=== PATIENT | male | born 1945 | race Caucasian/White ===

== ENCOUNTER 2019-05-14 21:15 | Emergency (ER) | payer MEDICARE ==
[~2019-05-14] VITALS: Ht 167.6 cm; Wt 68.9 kg
--- NOTE | 2019-05-14 22:10 | NUR ---
PT TAKEN TO RADIOLOGY VIA [facility]
--- NOTE | 2019-05-14 22:26 | NUR ---
PT RETURNED FROM RADIOLOGY. PT TOLERATED WELL.
--- NOTE | 2019-05-14 23:20 | NUR ---
JACI TO [facility] ETA [id number] TRIP [id number]
[2019-05-15] MEDS ORDERED: CLONIDINE HCL 0.1 MG TABLET ONE (00:42)
[2019-05-15 00:48] VITALS: BP 175/86
[2019-05-15] MEDS ORDERED: CLONIDINE HCL 0.1 MG TABLET PO ONE (01:00)
== END 2019-05-15 01:40 | disposition home or self-care (01) ==
LOC: ER 21:20
DX: S09.8XXA Other specified injuries of head, initial encounter (principal); G30.9 Alzheimer's disease, unspecified; F02.80 Dementia in other diseases classified elsewhere, unspecified severity, without behavioral disturbance, psychotic disturbance, mood disturbance, and anxiety; G20 Parkinson's disease; I10 Essential (primary) hypertension; N17.9 Acute kidney failure, unspecified; M62.81 Muscle weakness (generalized); F29 Unspecified psychosis not due to a substance or known physiological condition; W18.39XA Other fall on same level, initial encounter; Y93.89 Activity, other specified; Y92.89 Other specified places as the place of occurrence of the external cause; Y99.8 Other external cause status
CPT/HCPCS: 70450-TC

== ENCOUNTER 2019-10-17 21:18 | Inpatient (IN) | payer MEDICARE, OTHER ==
[~2019-10-17] VITALS: Ht 182.9 cm; Wt 65.8 kg
--- NOTE | 2019-10-17 21:27 | NUR ---
PATIENT CAME TO ER BED 10 [address]IB RA [address] [facility] C/O FEVER. PER EMS REPORT, PATIENT IS MORE ALTERED THAN USUAL, UNABLE TO STATE HIS NAME. PATIENT HAS HISTORY OF DEMENTIA. AAOX0. NO SOB. BREATHING EVENLY AND UNLABORED. CONNECTED TO MONITOR.
[2019-10-17 21:53] LABS: BASOPHILS % (AUTO) 0.5 % (0.0-2.0); EOSINOPHILS % (AUTO) 0.1 % (0.0-6.0); HEMATOCRIT 40 % (39-51); HEMOGLOBIN 13.2 g/dL (13.5-17.5); LYMPHOCYTES # (AUTO) 0.1 /CMM (0.8-4.8); LYMPHOCYTES % (AUTO) 2.1 % (20.0-44.0); MEAN CORPUSCULAR HGB CONC 33 g/dl (31.0-36.0); MEAN CORPUSCULAR VOLUME 93 fL (80-96); MONOCYTES # (AUTO) 0.1 /CMM (0.1-1.30); MONOCYTES % (AUTO) 1.8 % (2.0-12.0); NEUTROPHILS # (AUTO) 5.8 /CMM (1.8-8.9); NEUTROPHILS % (AUTO) 95.5 % (43.0-81.0); PLATELET COUNT (AUTO) 73 /CMM (150-450); RED BLOOD CELL COUNT(AUTO) 4.25 MIL/uL (4.5-6.0)
[2019-10-17 22:07] LABS: ALBUMIN 3.3 g/dL (3.4-5.0); BILIRUBIN,DIRECT 0.2 mg/dL (0.0-0.2); BILIRUBIN,TOTAL 0.6 mg/dL (0.2-1.0); CALCIUM, SERUM 8.7 mg/dL (8.5-10.1); CREATININE 1.3 mg/dL (0.6-1.3); POTASSIUM 3.4 mmol/L (3.5-5.1); TOTAL PROTEIN, SERUM 6.4 g/dL (6.4-8.2)
[2019-10-17 22:26] LABS: BAND % (MANUAL) 5 % (0.0-5.0); LYMPHOCYTES % (MANUAL) 2 % (16-48); MONOCYTES % (MANUAL) 0 % (0-11.0); NEUTROPHILS % (MANUAL) 93 (42-76)
[2019-10-17] MEDS ORDERED: IV NS 0.9% 1,000 ML BAG IV ONE (22:30)
[2019-10-17] MEDS ORDERED: ACETAMINOPHEN 325 MG TABLET PO ONE (22:30)
[2019-10-17] MEDS ORDERED: ASPIRIN 325 MG TABLET PO ONE (22:30)
[2019-10-17] MEDS ORDERED: ACETAMINOPHEN ES 500 MG TABLET ONE (22:31)
[2019-10-17] MEDS ORDERED: CEFTRIAXONE 1GM BAG (ER ONLY) 50 ML IV ONE (22:52)
[2019-10-17] MEDS ORDERED: ACETAMINOPHEN 650 MG/SUPP.RECT RC ONE ×2 (22:53→23:00)
[2019-10-17] MEDS ORDERED: ASPIRIN 300 MG/SUPP.RECT RC ONE ×2 (22:53→23:00)
--- NOTE | 2019-10-17 22:56 | NUR ---
CALLED [facility], PAGED DR GOODMAN
[2019-10-17] MEDS ORDERED: QUET25TA PO (22:58)
[2019-10-17] MEDS ORDERED: CARB-93 PO (22:58)
[2019-10-17] MEDS ORDERED: ATEN25TA PO (22:58)
[2019-10-17] MEDS ORDERED: BUSP5TAB3 PO (22:58)
[2019-10-17] MEDS ORDERED: QUET100T PO (22:58)
[2019-10-17] MEDS ORDERED: AZITHROMYCIN 500 MG in IV D5W 250 ML IV ONE (23:00)
[2019-10-17] MEDS ORDERED: CEFTRIAXONE 1GM BAG (ER ONLY) 1 GM/50 ML PIGGYBACK IV ONE (23:00)
--- NOTE | 2019-10-17 23:03 | NUR ---
ER SPOKE TO DR. GOODMAN REGARDING PT ADMISSION.
--- NOTE | 2019-10-17 23:08 | NUR ---
TELE BED 324-2
[2019-10-17] MEDS ORDERED: AZITHROMYCIN 500 MG VIAL ONE (23:22)
[2019-10-17] MEDS ORDERED: LORAZEPAM INJ 2 MG/ML VIAL IV ONE (23:30)
[2019-10-18] MEDS ORDERED: IV NS 0.9% 1,000 ML BAG IV ONE
[2019-10-18] MEDS ORDERED: ALBUMIN 25% 50 ML IV ONE (00:07)
--- NOTE | 2019-10-18 00:26 | NUR ---
RAYMOND GAFFNEY SPOKE TO DR. GOODMAN REGARDING PT UPDATE. PT STILL OK TO ADMIT TO TELE.
[2019-10-18] MEDS ORDERED: ALBUMIN 25% 12.5 GM in PREMIX 1 EA IV PRN (00:30)
--- NOTE | 2019-10-18 00:57 | NUR ---
Report given Faviola DE LA ROSA for CARLOS.
[2019-10-18] MEDS ORDERED: ACETAMINOPHEN 325 MG TABLET PO PRN (01:00)
[2019-10-18] MEDS ORDERED: ONDANSETRON HCL/PF 4 MG/2 ML VIAL IVP PRN (01:00)
[2019-10-18] MEDS ORDERED: Z GUARD REMEDY 2 OZ OINT TP PRN (01:00)
[2019-10-18] MEDS ORDERED: MAGNESIUM HYDROXIDE 30 ML UDC PO PRN (01:00)
[2019-10-18] MEDS ORDERED: MAG HYDROX/AL HYDROX/SIMETH 30 ML UDC PO PRN (01:00)
[2019-10-18] MEDS ORDERED: HYDROCODONE/APAP 5/325MG 1 EACH TABLET PO PRN (01:00)
[2019-10-18] MEDS ORDERED: ZOSYN IVPB 3.375 G in IV D5W 50ml IV ONE (01:15)
[2019-10-18 01:20] VITALS: BP 91/52
--- NOTE | 2019-10-18 01:20 | NUR ---
FIRE BEHAVIOR ANALYSTHOPPER FILLER NOTE RECEIVED PATIENT VIA GURNEY FROM CABLE SWAGER AND BUILDING CONSTRUCTION PROFESSOR. TRANSFERRED PATIENT TO BED. A/OX0, PATIENT HAS INCOHERENT SPEECH, TOLERATING ROOM AIR AT THIS TIME. RESPIRATIONS ARE EVEN AND UNLABORED. NO S/S SOB NOTED. NO S/S PAIN AT THIS TIME. EXTERNAL TELE MONITOR READS SINUS RHYTHM HR 71. IN NO APPARENT DISTRESS. IV ACCESS IN LAC#20 PATENT AND SALINE LOCKED, RIGHT HAND #20 PATENT AND SALINE LOCKED. CLASS A REGIONAL TRUCK DRIVER TOOK VITAL SIGNS, COMPLETED BELONGINGS LIST. INATAL PHYSICAL ASSESSMENT COMPLETED AT THIS TIME. SKIN ASSESSMENT DONE AT THIS TIME, PICTURES TAKEN AND PLACED IN CHART. BED IS LOW AND LOCKED, HOB ELEVATED IN HIGH FOWLERS, SIDE RAILS UP X3. CALL LIGHT WITHIN REACH. WILL CONTINUE TO MONITOR.
[2019-10-18] MEDS ORDERED: VANCOMYCIN 1.5 GM in IV D5W 500ml IV ONE (01:45)
[2019-10-18] MEDS ORDERED: VANCOMYCIN 1 GM VIAL ONE ×2 (01:54→01:57)
[2019-10-18] MEDS: IV NS 0.9% 1,000 ML IV PRN ×2 (02:07→20:57)
--- NOTE | 2019-10-18 02:15 | NUR ---
UTILITY GELATIN MAKER NOTE CHARGE NURSE OVERRIDE MEDICATIONS OF ZOSYN 3.37G G D/T PHARMACY NOT AVAILABLE TO DISTRIBUTE MED. SAME FOR VANCO. FOR VANCO 2G WERE REMOVED, MIXED VIAL WITH 10ML NS AND PLACED IN 5ML (.05G) IN OTHER/SECOND 1G VANCO BAG TOTALLING TO THE ORDER FOR 1.5G VANCO TO RUN AT 250ML/HR.
[2019-10-18 04:00] VITALS: BP 104/75
--- NOTE | 2019-10-18 06:40 | NUR ---
BUSINESS REPORTER NOTE TRYING TO CALL MD FOR AN ORDER FOR RESTRAINT. PATIENT IS TRYING TO PULL OUT IV LINES, GET OUT OF BED, AND HIT STAFF. AWAITING HIS CALL. INCREASED MONITORING, TURNED ON BED ALARM AND ARM SOCK.
--- NOTE | 2019-10-18 06:43 | NUR ---
CAREER COORDINATOR CLOSING NOTE PATIENT IN BED. A/OX0, PATIENT HAS INCOHERENT SPEECH. ON OXYGEN 2L/MIN VIA NASAL CANNULA. RESPIRATIONS ARE EVEN AND UNLABORED. NO SOB NOTED. NO PAIN NOTED. EXTERNAL TELE MONITOR READS SINUS RHYTHM HR 71. NO DISTRESS NOTED. IV ACCESS IN MAINTAINED LAC#20 PATENT AND SALINE LOCKED, RIGHT HAND #20 RUNNING NS@75ML/HR. . BED IS LOW AND LOCKED, HOB ELEVATED IN HIGH FOWLERS, SIDE RAILS UP X3. CALL LIGHT WITHIN REACH. WILL ENDORSE TO NEXT SHIFT.
--- NOTE | 2019-10-18 07:30 | NUR ---
RN NOTE RECEIVED PATIENT IN BED RESTING COMFORTABLY IN MODERATE HIGH BACK REST. A/OX0, CONFUSED, PATIENT HAS INCOHERENT SPEECH. ON OXYGEN 2L/MIN VIA NASAL CANNULA. PATIENT ON B/L SOFT WRIST RESTRAINT. NO SIGNS OF DISTRESS NOTED AT THIS TIME. ON TELE MONITOR READS SINUS RHYTHM HR 70'S. IV ACCESS MAINTAINED LAC#20 PATENT AND SALINE LOCKED, RIGHT HAND #20 RUNNING NS@75ML/HR. SAFETY MEASURES IN PLACE, BED IS LOW AND LOCKED, SIDE RAILS UP X3. CALL LIGHT WITHIN REACH. WILL CONTINUE TO MONITOR.
[2019-10-18] MEDS ORDERED: BISA10SU11 RC (07:32)
[2019-10-18] MEDS ORDERED: ACET-868 PO (07:32)
[2019-10-18] MEDS ORDERED: MAGN400O6 PO (07:32)
[2019-10-18] MEDS ORDERED: NA P133E RC (07:32)
[2019-10-18] MEDS ORDERED: FEE PK DOSING 1 MIN EA MC ONE (07:49)
--- NOTE | 2019-10-18 07:51 | NUR ---
MS RN NOTE EPIC CALLED BACK TO ASK IF DR. GOODMAN RETURNED CALLED, ANSWERED NO. INFORMED ME TO CALL BACK WITH THE ATTENDING FOR TODAY. WILL INFORM AM SHIFT.
[2019-10-18 07:53] VITALS: BP 104/59
[2019-10-18] MEDS: ASPIRIN 81 MG TAB.CHEW PO SCH (08:23)
[2019-10-18] MEDS: ENOXAPARIN SODIUM 40 MG/0.4 ML DISP.SYRIN SQ SCH (08:27)
[2019-10-18 08:43] LABS: BASOPHILS % (AUTO) 0.1 % (0.0-2.0); HEMATOCRIT 36 % (39-51); HEMOGLOBIN 12.4 g/dL (13.5-17.5); LYMPHOCYTES # (AUTO) 0.2 /CMM (0.8-4.8); LYMPHOCYTES % (AUTO) 3.2 % (20.0-44.0); MEAN CORPUSCULAR HGB CONC 34 g/dl (31.0-36.0); MEAN CORPUSCULAR VOLUME 93 fL (80-96); MONOCYTES # (AUTO) 0.1 /CMM (0.1-1.30); MONOCYTES % (AUTO) 1.2 % (2.0-12.0); NEUTROPHILS # (AUTO) 4.8 /CMM (1.8-8.9); NEUTROPHILS % (AUTO) 95.5 % (43.0-81.0); PLATELET COUNT (AUTO) 51 /CMM (150-450); RED BLOOD CELL COUNT(AUTO) 3.92 MIL/uL (4.5-6.0); WHITE BLOOD COUNT (AUTO) 5.1 K/uL (4.3-11.0)
[2019-10-18 08:50] LABS: ALBUMIN 2.8 g/dL (3.4-5.0); CREATININE 1.2 mg/dL (0.6-1.3); MAGNESIUM 1.5 mg/dL (1.8-2.4); PHOSPHORUS 1.2 mg/dL (2.5-4.9); POTASSIUM 3.3 mmol/L (3.5-5.1); TOTAL PROTEIN, SERUM 5.6 g/dL (6.4-8.2)
[2019-10-18] MEDS ORDERED: POTASSIUM CHLORIDE 20 MEQ TAB.PRT.SR PO SCH (09:30)
[2019-10-18 09:38] LABS: BAND % (MANUAL) 14 % (0.0-5.0); LYMPHOCYTES % (MANUAL) 5 % (16-48); MONOCYTES % (MANUAL) 1 % (0-11.0); NEUTROPHILS % (MANUAL) 80 (42-76)
[2019-10-18] MEDS ORDERED: K PHOS NEUTRAL 250 MG TABLET PO ONE (10:00)
[2019-10-18] MEDS: Magnesium 1GM/D5W 100ML PREMIX 100 ML IV SCH ×2 (10:20→11:52)
[2019-10-18] MEDS ORDERED: ZOSYN IVPB 3.375 G in IV D5W 50ml IV SCH (12:00)
[2019-10-18] MEDS ORDERED: VANCOMYCIN 0.75 GM in IV D5W 250 ML IV SCH (14:00)
[2019-10-18] MEDS: AZITHROMYCIN 500 MG in IV D5W 250 ML IV SCH (14:40)
[2019-10-18 16:00] VITALS: BP 117/89
--- NOTE | 2019-10-18 16:00 | NUR ---
RN NOTES TROPONIN RESULTS OF 1.001, TABBY GOLD MADE AWARE WITH NO NEW ORDERS AT THIS TIME. WILL CONTINUE TO MONITOR.
[2019-10-18] MEDS: CEFTRIAXONE 1 G in IV D5W 50 ML IV SCH (18:20)
--- NOTE | 2019-10-18 18:36 | NUR ---
Patient has hx of dementia, resides at [facility] [phone]. She requires assistance with adl's. Current dc plan is to return to SNF with 7days bedhold. Addendum: 10/18/19 at 1836 by LAQUITA EASTON RN Amended: Links added.
--- NOTE | 2019-10-18 18:41 | NUR ---
RN CLOSING NOTES PATIENT IN BED. A/OX0. ON OXYGEN 2L/MIN VIA NASAL CANNULA. NO SIGNS OF DISTRESS NOTED THROUGHOUT THE SHIFT. IV ACCESS IN MAINTAINED LAC#20 PATENT AND SALINE LOCKED, RIGHT HAND #20 RUNNING NS@75ML/HR. B/L SOFT WRIST RESTRAINT MAINTAINED, SAFETY MEASURES IN PLACE, BED IS LOW AND LOCKED, HOB ELEVATED IN HIGH FOWLERS, SIDE RAILS UP X3. CALL LIGHT WITHIN REACH. WILL ENDORSE TO NEXT SHIFT.
--- NOTE | 2019-10-18 20:17 | NUR ---
MS/RN AT INITIAL ROUNDING AT 1930, PATIENT WAS ON BED AWAKE, CONFUSED, UNABLE TO ANSWER TO QUESTIONS, NO S/S OF PAIN, NO SIGNS OF DISTRESS NOTED, FALL PRECAUTIONS, WILL MONITOR FOR SAFETY.
[2019-10-18 20:27] VITALS: BP 103/65
--- NOTE | 2019-10-19 06:09 | NUR ---
MS/RN PATIENT IS AWAKE, NO DISTRESS NOTED, ON AND OFF THE WHOLE SHIFT, ALL NEEDS ATTENDED AT THIS TIME, WILL CONTINUE TO MONITOR.
[2019-10-19 06:55] LABS: BASOPHILS % (AUTO) 0.2 % (0.0-2.0); EOSINOPHILS % (AUTO) 0.1 % (0.0-6.0); HEMATOCRIT 38 % (39-51); HEMOGLOBIN 12.5 g/dL (13.5-17.5); LYMPHOCYTES # (AUTO) 0.8 /CMM (0.8-4.8); LYMPHOCYTES % (AUTO) 6.6 % (20.0-44.0); MEAN CORPUSCULAR HGB CONC 33 g/dl (31.0-36.0); MEAN CORPUSCULAR VOLUME 92 fL (80-96); MONOCYTES # (AUTO) 0.5 /CMM (0.1-1.30); MONOCYTES % (AUTO) 4.6 % (2.0-12.0); NEUTROPHILS # (AUTO) 10.6 /CMM (1.8-8.9); NEUTROPHILS % (AUTO) 88.5 % (43.0-81.0); PLATELET COUNT (AUTO) 68 /CMM (150-450); RED BLOOD CELL COUNT(AUTO) 4.09 MIL/uL (4.5-6.0)
[2019-10-19 06:58] LABS: CALCIUM, SERUM 8.1 mg/dL (8.5-10.1); CREATININE 0.9 mg/dL (0.6-1.3); MAGNESIUM 2.2 mg/dL (1.8-2.4); PHOSPHORUS 1.6 mg/dL (2.5-4.9); POTASSIUM 3.4 mmol/L (3.5-5.1)
--- NOTE | 2019-10-19 07:15 | NUR ---
MS RN OPENING NOTES RECEIVED PT IN BED, AWAKE, A/ X1, CONFUSED. PT TOLERATING 2L SUPPLEMENTARY OXYGEN VIA NC, WITH NO ACUTE RESPIRATORY DISTRESS NOTED. BOTH SOFT WRIST RESTRAINTS NOTED. PT DENIES ANY PAIN OR DISCOMFORT AT THIS TIME. ALSO DENIES CONCERNS OR QUESTIONS. IVF NS AT 75ML/HR TO R HAND G20, INTACT AND FLUID INFUSING WELL. PIV TO LAC, FLUSHED WITH NS, INTACT AND OPERATIONAL. PT KEPT COMFORTABLE IN BED, HOB ELEVATED. PED IN LOWEST, LOCKED POSITION WITH SRX3. WILL CONTINUE PLAN OF CARE.
--- NOTE | 2019-10-19 07:51 | NUR ---
MS RN NOTES SEEN AND EVALUATED BY WASHING MACHINE ASSEMBLER/DT, NO ORDERS NOTED AT THIS TIME. RN REMINDED WASHING MACHINE ASSEMBLER/DT ABOUT RENEWALS OF RESTRAINTS. WILL CONTINUE TO MONITOR PT.
[2019-10-19 08:00] VITALS: BP 122/68
[2019-10-19] MEDS: ASPIRIN 81 MG TAB.CHEW PO SCH (08:09)
[2019-10-19] MEDS: POTASSIUM CHLORIDE 20 MEQ TAB.PRT.SR PO SCH ×2 (08:09→08:53)
[2019-10-19] MEDS: ENOXAPARIN SODIUM 40 MG/0.4 ML DISP.SYRIN SQ SCH (08:10)
[2019-10-19] MEDS: METOPROLOL TARTRATE 50 MG TABLET PO SCH ×2 (08:54→21:08)
[2019-10-19] MEDS ORDERED: METOPROLOL TARTRATE 50 MG TABLET PO SCH (09:00)
[2019-10-19] MEDS ORDERED: METOPROLOL TARTRATE 25 MG TABLET PO SCH (09:00)
[2019-10-19] MEDS ORDERED: K PHOS NEUTRAL 250 MG TABLET PO ONE (09:00)
[2019-10-19 09:32] LABS: BAND % (MANUAL) 6 % (0.0-5.0); LYMPHOCYTES % (MANUAL) 6 % (16-48); MONOCYTES % (MANUAL) 6 % (0-11.0); NEUTROPHILS % (MANUAL) 82 (42-76)
[2019-10-19] MEDS: IV NS 0.9% 1,000 ML IV PRN (12:11)
[2019-10-19] MEDS: AZITHROMYCIN 500 MG in IV D5W 250 ML IV SCH (12:28)
--- NOTE | 2019-10-19 13:00 | NUR ---
MS RN NOTES INFORMED HOSPITALIST/INSPECTOR CLIP ON SUNGLASSES/DT MADE AWARE OF PROCALCITONIN OF 19.34. NO NEW ORDERS NOTED. PER DT ID IS INVOLVED. CHARGE NURSE/KA AWARE WELL.
[2019-10-19] MEDS ORDERED: BISACODYL SUPP (10 MG) 10 MG/SUPP.RECT SUPP.RECT RC PRN (14:30)
[2019-10-19 16:00] VITALS: BP 148/77
[2019-10-19] MEDS: QUETIAPINE FUMARATE 25 MG TABLET PO SCH (16:27)
[2019-10-19] MEDS: CARBIDOPA/LEVODOPA 25/100 MG 1 UDTAB PO SCH (16:27)
[2019-10-19] MEDS: busPIRone 5 MG TABLET PO SCH (16:28)
[2019-10-19] MEDS: CEFTRIAXONE 1 G in IV D5W 50 ML IV SCH (17:00)
--- NOTE | 2019-10-19 18:17 | NUR ---
MS RN NOTES RECEIVED CALL FROM [facility]. PT POSITIVE FOR MRSA RIGHT NARES. HOSPITALIST/DT IN THE UNIT MAD EAWARE AND ORDERS PLACED AND CARRIED OUT. WILL CONTINUE TO MONITOR.
--- NOTE | 2019-10-19 18:38 | NUR ---
MS RN CLOSING NOTES PT REMAINS IN BED, AWAKE, A/ X1, CONFUSED. NOW ON ISOLATION FOR MRSA RIGHT NARES, PROTOCOL ORDERS PLACED PER STEAM CRANE OPERATOR/DT AND CARRIED OUT. PT TOLERATING 2L SUPPLEMENTARY OXYGEN VIA NC, WITH NO ACUTE RESPIRATORY DISTRESS NOTED. BOTH SOFT WRIST RESTRAINTS RENEWED. PT DENIES ANY PAIN OR DISCOMFORT AT THIS TIME. IVF NS AT 75ML/HR TO LAC, INTACT AND FLUID INFUSING WELL. PIV TO RFA G20, FLUSHED WITH NS, INTACT AND OPERATIONAL. PT KEPT COMFORTABLE IN BED, HOB ELEVATED. ALL NEEDS AND CARE PROVIDED. BED IN LOWEST, LOCKED POSITION WITH SRX3. WILL ENDORSE TO INCOMING NIGHT NURSE FOR CARLOS.
--- NOTE | 2019-10-19 19:23 | NUR ---
MS RN OPENING NOTES PATIENT RECEIVED RESTING IN BED A/O X 1. ON 2L OF O2 VIA NC WITH BREATHING EVEN AND UNLABORED, NO SOB NOTED. NO SIGNS OF ACUTE DISTRESS. NO COMPLAINTS OF PAIN OR DISCOMFORT, NO FACIAL GRIMACING NOTED. PATIENT ON BILATERAL SOFT WRIST RESTRAINTS PRESENT WITH PULSE PRESENT, 2 FINGER SPACE LOOSE, CIRCULATION GOOD. IV LOCATED ON L AC RUNNING NS @ 75 ML/HR AND RFA#20 SL. SAFETY PRECAUTIONS IN PLACE WITH BED IN LOWEST POSITION, CALL LIGHT WITHIN REACH, BREAKS ON, SIDE RAILS UP X2. WILL CONTINUE TO MONITOR THROUGHOUT THEN NIGHT.
--- NOTE | 2019-10-19 19:26 | NUR ---
MS RN NOTES CALLED [employer] TO FOLLOW UP WITH ISOLATION CART- STILL LOOKING FOR AVAILABLE ONE.
[2019-10-19 20:00] VITALS: BP 125/66
[2019-10-19 20:13] VITALS: BP 125/66
[2019-10-19] MEDS: QUETIAPINE FUMARATE 100 MG TABLET PO SCH (21:07)
[2019-10-19] MEDS: MUPIROCIN OINT 2% 22 GM TUBE SCH (21:08)
[2019-10-20] MEDS: IV NS 0.9% 1,000 ML IV PRN ×2 (03:21→16:42)
--- NOTE | 2019-10-20 06:27 | NUR ---
MS RN CLOSING NOTES PATIENT RESTING IN BED A/O X 1. ON 2L OF O2 VIA NC WITH BREATHING EVEN AND UNLABORED, NO SOB NOTED. NO SIGNS OF ACUTE DISTRESS. NO COMPLAINTS OF PAIN OR DISCOMFORT, NO FACIAL GRIMACING NOTED. PATIENT ON BILATERAL SOFT WRIST RESTRAINTS PRESENT WITH PULSE PRESENT, 2 FINGER SPACE LOOSE, CIRCULATION GOOD. IV LOCATED ON L AC RUNNING NS @ 75 ML/HR AND RFA#20 SL. SAFETY PRECAUTIONS IN PLACE WITH BED IN LOWEST POSITION, CALL LIGHT WITHIN REACH, BREAKS ON, SIDE RAILS UP X2. ALL NEEDS ATTENDED TO, PATIENT WS KEPT CLEAN AND DRY THROUGHOUT THE NIGHT. WILL ENDORSE TO ONCOMING SHIFT ABOUT CARLOS.
[2019-10-20 07:40] LABS: BASOPHILS % (AUTO) 0.1 % (0.0-2.0); EOSINOPHILS % (AUTO) 0.4 % (0.0-6.0); HEMATOCRIT 36 % (39-51); LYMPHOCYTES # (AUTO) 0.8 /CMM (0.8-4.8); LYMPHOCYTES % (AUTO) 12.7 % (20.0-44.0); MEAN CORPUSCULAR HGB CONC 34 g/dl (31.0-36.0); MEAN CORPUSCULAR VOLUME 93 fL (80-96); MONOCYTES # (AUTO) 0.5 /CMM (0.1-1.30); MONOCYTES % (AUTO) 6.9 % (2.0-12.0); NEUTROPHILS # (AUTO) 5.3 /CMM (1.8-8.9); NEUTROPHILS % (AUTO) 79.9 % (43.0-81.0); PLATELET COUNT (AUTO) 58 /CMM (150-450); RED BLOOD CELL COUNT(AUTO) 3.84 MIL/uL (4.5-6.0); WHITE BLOOD COUNT (AUTO) 6.6 K/uL (4.3-11.0)
--- NOTE | 2019-10-20 07:48 | NUR ---
MS RN OPENING NOTE PATIENT IN BED RESTING COMFORTABLY. PATIENT IN NO ACUTE DISTRESS. NO SOB NOTED. PATIENT BREATHING IS EVEN AND UNLABORED. PATIENT WITH BILATERAL SOFT WRIST RESTRAINTS. SAFETY PRECAUTIONS IN PLACE. BED ALARM IS ON. PATIENT BED IS LOCKED AND IN LOWEST POSITION. CALL LIGHT WITHIN REACH. WILL CONTINUE TO MONITOR.
[2019-10-20 08:00] VITALS: BP 125/67
[2019-10-20 08:06] LABS: ALBUMIN 2.5 g/dL (3.4-5.0); BILIRUBIN,TOTAL 0.4 mg/dL (0.2-1.0); CALCIUM, SERUM 7.6 mg/dL (8.5-10.1); CREATININE 0.8 mg/dL (0.6-1.3); MAGNESIUM 2.2 mg/dL (1.8-2.4); POTASSIUM 3.3 mmol/L (3.5-5.1); TOTAL PROTEIN, SERUM 5.5 g/dL (6.4-8.2)
[2019-10-20] MEDS: MUPIROCIN OINT 2% 22 GM TUBE SCH ×2 (08:10→21:48)
[2019-10-20] MEDS: busPIRone 5 MG TABLET PO SCH ×3 (08:16→16:13)
[2019-10-20] MEDS: QUETIAPINE FUMARATE 25 MG TABLET PO SCH ×2 (08:16→16:13)
[2019-10-20] MEDS: CARBIDOPA/LEVODOPA 25/100 MG 1 UDTAB PO SCH ×2 (08:16→16:13)
[2019-10-20] MEDS: METOPROLOL TARTRATE 50 MG TABLET PO SCH ×2 (08:16→21:48)
[2019-10-20] MEDS: ASPIRIN 81 MG TAB.CHEW PO SCH (08:16)
[2019-10-20] MEDS: ENOXAPARIN SODIUM 40 MG/0.4 ML DISP.SYRIN SQ SCH (08:17)
[2019-10-20 09:41] LABS: BAND % (MANUAL) 1 % (0.0-5.0); EOSINOPHILS % (MANUAL) 2 % (0-4); LYMPHOCYTES % (MANUAL) 12 % (16-48); MONOCYTES % (MANUAL) 6 % (0-11.0); NEUTROPHILS % (MANUAL) 79 (42-76)
[2019-10-20] MEDS ORDERED: POTASSIUM CHLORIDE 20 MEQ TAB.PRT.SR PO ONE (11:30)
[2019-10-20] MEDS ORDERED: NEUTRA PHOS 1 POWD.PACKET PO ONE (11:30)
[2019-10-20] MEDS ORDERED: POTASSIUM CHLORIDE 20 MEQ POWDER PACKET PO SCH (11:30)
[2019-10-20] MEDS ORDERED: K PHOS NEUTRAL 250 MG TABLET PO ONE (11:30)
[2019-10-20] MEDS: AZITHROMYCIN 500 MG in IV D5W 250 ML IV SCH (12:08)
[2019-10-20 16:00] VITALS: BP 131/92
[2019-10-20] MEDS: CEFTRIAXONE 1 G in IV D5W 50 ML IV SCH (17:20)
--- NOTE | 2019-10-20 18:52 | NUR ---
MS RN CLOSING NOTE PATIENT IN BED RESTING COMFORTABLY. PATIENT IN NO ACUTE DISTRESS. NO SOB NOTED. PATIENT BREATHING IS EVEN AND UNLABORED. PATIENT KEPT CLEAN, DRY AND COMFORTABLE THROUGHOUT SHIFT. BED ALARM IS ON. PATIENT HAS BILATERAL WRIST RESTRAINTS, CHECKED FOR CIRCULATION AND RELIEF OF RESTRAINTS. CIRCULATION IS GOOD AND PRESENT. PATIENT BED IS LOCKED AND LOWEST POSITION. CALL LIGHT WITHIN REACH. WILL ENDORSE CARE TO PM SHIFT FOR CARLOS.
[2019-10-20 20:06] VITALS: BP 139/69
[2019-10-20 20:14] VITALS: BP 139/69
--- NOTE | 2019-10-20 20:28 | NUR ---
RN NOTES PATIENT IN BED, ALERT AND ORIENTED X1, STABLE ON 2LPM VIA NC, CALM, SOFT BILATERAL RESTRAINTS, WITH EPISODES OF CONFUSION, GETTING OUT OF BED, PULLING OUT IV LINES, CONTACT ISOLATION DUE TO MRSA IN NARES MAINTAINED, KEPT SAFE, CALL LIGHT WITHIN REACH.
[2019-10-20] MEDS: QUETIAPINE FUMARATE 100 MG TABLET PO SCH (21:48)
[2019-10-21] MEDS: IV NS 0.9% 1,000 ML IV PRN ×2 (04:31→19:35)
--- NOTE | 2019-10-21 06:45 | NUR ---
RN NOTES PM SHIFT ALERT AND AWAKE, CONFUSED, STABLE ON 2LPM VIA NC, NOT IN APPARENT DISTRESS, RESTLESS AT TIMES, BILATERAL RESTRAINTS TO PREVENT PATIENT FROM PULLING OUT IV LINES, VS STABLE, NO SKIN BREAKDOWN A RESULT OF RESTRAINTS, CONTINUE AZITHROMYCIN AND CEFTRIAXONE, IV HYDRATION, POSSIBLE DC PLANNING BACK TO [facility].
--- NOTE | 2019-10-21 07:30 | NUR ---
RN MS NOTES PT IN BED, AWAKE, ALERT TO SELF, CONFUSED, NO SIGN OF PAIN, NOT IN DISTRESS, IV FLUIDS INFUSING WELL, KEPT CLEAN AND DRY, REPOSITIONED AND TURNED Q2 HOURS.
--- NOTE | 2019-10-21 07:30 | NUR ---
RN MS NOTES PT IN BED, ASLEEP, RESPIRATIONS NORMAL AND NOT LABORED, EASY TO AROUSE, ALERT WITH CONFUSION, NO SIGN OF PAIN OR DISTRESS, CALL LIGHT WITHIN REACH, KEPT WARM AND COMFORTABLE IN BED.
[2019-10-21 08:00] VITALS: BP 145/84
[2019-10-21] MEDS: MUPIROCIN OINT 2% 22 GM TUBE SCH ×2 (09:30→21:12)
[2019-10-21] MEDS: CARBIDOPA/LEVODOPA 25/100 MG 1 UDTAB PO SCH ×2 (09:30→16:25)
[2019-10-21] MEDS: QUETIAPINE FUMARATE 25 MG TABLET PO SCH ×2 (09:30→16:25)
[2019-10-21] MEDS: ASPIRIN 81 MG TAB.CHEW PO SCH (09:30)
[2019-10-21] MEDS: METOPROLOL TARTRATE 50 MG TABLET PO SCH ×2 (09:30→21:11)
[2019-10-21] MEDS: ENOXAPARIN SODIUM 40 MG/0.4 ML DISP.SYRIN SQ SCH (09:31)
[2019-10-21] MEDS: busPIRone 5 MG TABLET PO SCH ×3 (09:32→16:25)
[2019-10-21 09:54] LABS: BASOPHILS % (AUTO) 0.5 % (0.0-2.0); EOSINOPHILS % (AUTO) 1.9 % (0.0-6.0); HEMATOCRIT 38 % (39-51); HEMOGLOBIN 12.7 g/dL (13.5-17.5); LYMPHOCYTES # (AUTO) 0.8 /CMM (0.8-4.8); LYMPHOCYTES % (AUTO) 18.6 % (20.0-44.0); MEAN CORPUSCULAR HGB CONC 33 g/dl (31.0-36.0); MEAN CORPUSCULAR VOLUME 92 fL (80-96); MONOCYTES # (AUTO) 0.3 /CMM (0.1-1.30); MONOCYTES % (AUTO) 7.2 % (2.0-12.0); NEUTROPHILS % (AUTO) 71.8 % (43.0-81.0); PLATELET COUNT (AUTO) 71 /CMM (150-450); RED BLOOD CELL COUNT(AUTO) 4.15 MIL/uL (4.5-6.0); WHITE BLOOD COUNT (AUTO) 4.1 K/uL (4.3-11.0)
[2019-10-21 10:15] LABS: CALCIUM, SERUM 7.7 mg/dL (8.5-10.1); CREATININE 0.6 mg/dL (0.6-1.3); PHOSPHORUS 2.2 mg/dL (2.5-4.9); POTASSIUM 3.3 mmol/L (3.5-5.1)
[2019-10-21 10:29] LABS: EOSINOPHILS % (MANUAL) 2 % (0-4); LYMPHOCYTES % (MANUAL) 15 % (16-48); MONOCYTES % (MANUAL) 4 % (0-11.0); NEUTROPHILS % (MANUAL) 79 (42-76)
[2019-10-21] MEDS ORDERED: POTASSIUM CHLORIDE 20 MEQ TAB.PRT.SR PO ONE (12:00)
[2019-10-21] MEDS ORDERED: K PHOS NEUTRAL 250 MG TABLET PO ONE (12:00)
[2019-10-21] MEDS: AZITHROMYCIN 250 MG TABLET PO SCH (12:19)
[2019-10-21 15:33] LABS: APPEARANCE,URINE CLEAR (CLEAR); BILIRUBIN,URINE NEGATIVE (NEGATIVE); BLOOD, URINE TRACE Ery/uL (NEGATIVE); COLOR,URINE YELLOW (YELLOW); KETONES,URINE NEGATIVE (NEGATIVE); LEUKOCYTE ESTERASE ,URINE TRACE (NEGATIVE); NITRITE, URINE NEGATIVE (NEGATIVE); PROTEIN,URINE NEGATIVE (NEGATIVE); UGLUCOSE NEGATIVE (NEGATIVE)
[2019-10-21 15:39] LABS: BACTERIA,URINE None seen /HPF (None Seen); SQUAMOUS EPITHELIAL CELL,UR 0-2 /HPF (None Seen)
[2019-10-21 16:00] VITALS: BP 156/78
[2019-10-21] MEDS: CEFTRIAXONE 1 G in IV D5W 50 ML IV SCH (17:10)
--- NOTE | 2019-10-21 18:23 | NUR ---
RN MS NOTES PT IN BED, RESTING, ALERT TO SELF, WITH CONFUSION, SAFETY PRECAUTIONS OBSERVED, NOTED PT STILL TRYING TO PULL OUT IV LINES, KEPT ON BILATERAL SOFT WRIST RESTRAINTS FOR SAFETY, PM MEDS GIVEN, PM CARE PROVIDED, ALL NEEDS ATTENDED.
[2019-10-21 20:00] VITALS: BP_SYST 159; BP_DIAS 86; BP_DIAS 98
--- NOTE | 2019-10-21 20:57 | NUR ---
RN NOTES PATIENT IN BED, ON 2LPM VIA NC, NO RESPIRATORY DISTRESS, HIGH FOWLERS, BILATERAL WRIST RESTRAINTS, PATIENT PULLING OUT IV LINE AND TRYING TO GET OUT OF BED, ASPIRATION PRECAUTION, WILL CONTINUE TO MONITOR FOR SAFETY.
[2019-10-21] MEDS: QUETIAPINE FUMARATE 100 MG TABLET PO SCH (21:11)
--- NOTE | 2019-10-22 06:34 | NUR ---
RN NOTES PM SHIFT ALERT AND AWAKE, ON ROOM AIR, RESTLESS, CONFUSED,BILATERAL WRIST RESTRAINTS MAINTAINED, PULLING OUT IV LINE, GETTING OUT OF BED, REMOVING DIAPER, NO NEW SKIN BREAKDOWN, BRUISES AND SCRATCH VÁZQUEZ RESOLVING, ADEQUATE URINE OUTPUT, CONTINUE HOSPITALIZATION, IVF, MONITOR ELECTROLYTES AND REPLACE PRN
[2019-10-22] MEDS: IV NS 0.9% 1,000 ML IV PRN (07:24)
[2019-10-22 08:00] VITALS: BP 165/60
--- NOTE | 2019-10-22 08:00 | NUR ---
MS RN NOTES PATIENT IN BED RESTING NO SOB OR ACUTE DISTRESS NOTED. PERIPHERAL IV INTACT PATENT. BED IN LOW LOCKED POSITION, CALL LIGHT WITHIN REACH. WILL CONTINUE TO MONITOR.
[2019-10-22 08:44] LABS: BASOPHILS % (AUTO) 0.3 % (0.0-2.0); EOSINOPHILS % (AUTO) 2.3 % (0.0-6.0); HEMATOCRIT 43 % (39-51); HEMOGLOBIN 14.3 g/dL (13.5-17.5); LYMPHOCYTES % (AUTO) 16.8 % (20.0-44.0); MEAN CORPUSCULAR HGB CONC 33 g/dl (31.0-36.0); MEAN CORPUSCULAR VOLUME 92 fL (80-96); MONOCYTES # (AUTO) 0.5 /CMM (0.1-1.30); MONOCYTES % (AUTO) 8.2 % (2.0-12.0); NEUTROPHILS # (AUTO) 4.3 /CMM (1.8-8.9); NEUTROPHILS % (AUTO) 72.4 % (43.0-81.0); PLATELET COUNT (AUTO) 93 /CMM (150-450); RED BLOOD CELL COUNT(AUTO) 4.66 MIL/uL (4.5-6.0); WHITE BLOOD COUNT (AUTO) 5.9 K/uL (4.3-11.0)
[2019-10-22] MEDS: CARBIDOPA/LEVODOPA 25/100 MG 1 UDTAB PO SCH ×2 (08:46→16:13)
[2019-10-22] MEDS: QUETIAPINE FUMARATE 25 MG TABLET PO SCH ×2 (08:46→16:13)
[2019-10-22] MEDS: busPIRone 5 MG TABLET PO SCH ×3 (08:46→16:13)
[2019-10-22] MEDS: ASPIRIN 81 MG TAB.CHEW PO SCH (08:46)
[2019-10-22] MEDS: METOPROLOL TARTRATE 50 MG TABLET PO SCH ×2 (08:47→21:13)
[2019-10-22] MEDS: VALSARTAN 80 MG TABLET PO SCH (08:47)
[2019-10-22] MEDS: POTASSIUM CHLORIDE 20 MEQ TAB.PRT.SR PO SCH ×2 (08:47→10:58)
[2019-10-22] MEDS: ENOXAPARIN SODIUM 40 MG/0.4 ML DISP.SYRIN SQ SCH (08:48)
[2019-10-22] MEDS: MUPIROCIN OINT 2% 22 GM TUBE SCH ×2 (08:50→21:21)
[2019-10-22 09:49] LABS: ALBUMIN 2.9 g/dL (3.4-5.0); BILIRUBIN,TOTAL 0.7 mg/dL (0.2-1.0); CALCIUM, SERUM 8.1 mg/dL (8.5-10.1); CREATININE 0.7 mg/dL (0.6-1.3); MAGNESIUM 1.7 mg/dL (1.8-2.4); PHOSPHORUS 2.4 mg/dL (2.5-4.9); POTASSIUM 3.1 mmol/L (3.5-5.1); TOTAL PROTEIN, SERUM 6.5 g/dL (6.4-8.2)
[2019-10-22 09:57] LABS: BAND % (MANUAL) 1 % (0.0-5.0); EOSINOPHILS % (MANUAL) 1 % (0-4); LYMPHOCYTES % (MANUAL) 10 % (16-48); MONOCYTES % (MANUAL) 6 % (0-11.0); NEUTROPHILS % (MANUAL) 82 (42-76)
[2019-10-22] MEDS ORDERED: Magnesium 1GM/D5W 100ML PREMIX 100 ML IV SCH (12:30)
[2019-10-22] MEDS ORDERED: K PHOS NEUTRAL 250 MG TABLET PO ONE (13:00)
[2019-10-22] MEDS: AZITHROMYCIN 250 MG TABLET PO SCH (13:10)
[2019-10-22 16:00] VITALS: BP 161/91
[2019-10-22] MEDS: CEFTRIAXONE 1 G in IV D5W 50 ML IV SCH (17:06)
--- NOTE | 2019-10-22 18:04 | NUR ---
MS RN NOTES PATIENT IN BED RESTING NO SOB OR ACUTE DISTRESS NOTED. ALL DUE MEDICATIONS ADMINISTERED. ALL NEEDS MET. WILL ENDORSE CARE TO PM SHIFT.
--- NOTE | 2019-10-22 19:00 | NUR ---
MS/RN OPENING NOTES: PATIENT IN BED RESTING, NO SOB OR ACUTE DISTRESS NOTED. PERIPHERAL IV ON THE LEFT UA #22G, INTACT PATENT. NO C/O PAIN OR DISCOMFORT. WITH BILATERAL SOFT RESTRAINTS NOTED. SAFETY MEASURES IN PLACE. BED IN LOW LOCKED POSITION, CALL LIGHT WITHIN REACH. WILL CONTINUE TO MONITOR ACCORDINGLY.
[2019-10-22 20:00] VITALS: BP 145/85
[2019-10-22 20:37] VITALS: BP 145/85
[2019-10-22] MEDS: QUETIAPINE FUMARATE 100 MG TABLET PO SCH (22:08)
[2019-10-23] MEDS: IV NS 0.9% 1,000 ML IV PRN (01:32)
--- NOTE | 2019-10-23 06:30 | NUR ---
MS/RN CLOSING NOTES: PATIENT IN BED SLEEPING. NO SOB OR ACUTE DISTRESS NOTED. REMAINS A/OX1. PERIPHERAL IV ON THE LEFT UA #22G, INTACT PATENT. NO C/O PAIN OR DISCOMFORT. WITH BILATERAL SOFT RESTRAINTS NOTED. CHECKED EVERY 2 HOURS FOR CIRCULATION AND SKIN BREAKDOWN. KEPT PAT WARM AND COMFORTABLE ALL NIGHT. ALL DUE MEDS GIVEN ORDERED. ALL NEEDS MET AND RENDERED. SAFETY MEASURES IN PLACE. BED IN LOW LOCKED POSITION, CALL LIGHT WITHIN REACH. WILL ENDORSE TO DAY SHIFT FOR CARLOS.
[2019-10-23 07:24] LABS: BASOPHILS % (AUTO) 0.3 % (0.0-2.0); EOSINOPHILS % (AUTO) 3.1 % (0.0-6.0); HEMATOCRIT 43 % (39-51); HEMOGLOBIN 14.3 g/dL (13.5-17.5); LYMPHOCYTES % (AUTO) 18.1 % (20.0-44.0); MEAN CORPUSCULAR HGB CONC 34 g/dl (31.0-36.0); MEAN CORPUSCULAR VOLUME 92 fL (80-96); MONOCYTES # (AUTO) 0.5 /CMM (0.1-1.30); MONOCYTES % (AUTO) 9.8 % (2.0-12.0); NEUTROPHILS # (AUTO) 3.8 /CMM (1.8-8.9); NEUTROPHILS % (AUTO) 68.7 % (43.0-81.0); PLATELET COUNT (AUTO) 114 /CMM (150-450); RED BLOOD CELL COUNT(AUTO) 4.65 MIL/uL (4.5-6.0); WHITE BLOOD COUNT (AUTO) 5.5 K/uL (4.3-11.0)
[2019-10-23 07:46] LABS: CALCIUM, SERUM 8.5 mg/dL (8.5-10.1); CREATININE 0.7 mg/dL (0.6-1.3); MAGNESIUM 1.9 mg/dL (1.8-2.4); POTASSIUM 3.2 mmol/L (3.5-5.1)
[2019-10-23 08:00] VITALS: BP 161/86
--- NOTE | 2019-10-23 08:00 | NUR ---
m/s engagement specialist: initial assessment received pt in bed awake, alert to name only. no s/s of discomfort. reality orientation provided prn. kept comfortable. released and repositioned boyd wrist restraint. head librarian assist with breakfast with hob elevated. will continue to monitor.
[2019-10-23] MEDS: CARBIDOPA/LEVODOPA 25/100 MG 1 UDTAB PO SCH (08:52)
[2019-10-23] MEDS: VALSARTAN 80 MG TABLET PO SCH (08:52)
[2019-10-23] MEDS: QUETIAPINE FUMARATE 25 MG TABLET PO SCH (08:52)
[2019-10-23] MEDS: busPIRone 5 MG TABLET PO SCH ×2 (08:53→12:51)
[2019-10-23] MEDS: METOPROLOL TARTRATE 50 MG TABLET PO SCH (08:53)
[2019-10-23] MEDS: ASPIRIN 81 MG TAB.CHEW PO SCH (08:53)
[2019-10-23] MEDS: MUPIROCIN OINT 2% 22 GM TUBE SCH (08:56)
[2019-10-23] MEDS: ENOXAPARIN SODIUM 40 MG/0.4 ML DISP.SYRIN SQ SCH (08:57)
[2019-10-23] MEDS ORDERED: ISOSORBIDE DINITRATE (20MG) 20 MG TABLET PO SCH (09:00)
--- NOTE | 2019-10-23 10:00 | NUR ---
m/s low heel builder: md visit seen and examined by dr. cardenas with order to d'c back to snf. order acknowledged.
--- NOTE | 2019-10-23 11:00 | NUR ---
m/s welt treater: notes pt for discharge to snf. boyd soft wrist restraints taken off. ben (case management) made aware will check snf if pt okay to go back and need 24 hours off restraint.
--- NOTE | 2019-10-23 11:07 | NUR ---
m/s pourer buggy ladle: notes ben (case management) called back and informed me that the facility is aware of restraints and will accept the pt back as stated.
[2019-10-23] MEDS: POTASSIUM CHLORIDE 20 MEQ TAB.PRT.SR PO SCH ×2 (11:35→12:51)
--- NOTE | 2019-10-23 12:35 | NUR ---
m/s linseed oil refiner: notes report given to yung (rn) at [facility] for continuity of care. case management left a message to pt's sister re: d'c back to snf. pt made aware, but unable to sign discharge papers due to cognitive impairment.
--- NOTE | 2019-10-23 14:00 | NUR ---
m/s operating room manager: notes incontinent care rendered by wood scaler. kept clean and dry. good pericare rendered. turned and repositioned. kept comfortable. awaiting for ambulance to cloth picker. will continue to monitor.
[2019-10-23 14:55] VITALS: BP 102/58
--- NOTE | 2019-10-23 14:55 | NUR ---
m/s computerized mill mill recorder: notes ambulance here to pick and shovel man. report given to one of the crew. h/l removed with tip intact. vss.
--- NOTE | 2019-10-23 15:01 | NUR ---
m/s manager water wastewater: discharged discharged to snf in stable condition via ambulance accompanied by 2 crew.
== END 2019-10-23 15:00 | DRG 871 ==
LOC: ER 21:20 → TELE 23:28 → MED 10-18 09:25
PROVIDERS: ADMIT Internal Medicine; ATTEND Nurse Practitioner Acute Care
DX: A41.9 Sepsis, unspecified organism (principal); E43 Unspecified severe protein-calorie malnutrition; G93.41 Metabolic encephalopathy; I21.4 Non-ST elevation (NSTEMI) myocardial infarction; N17.0 Acute kidney failure with tubular necrosis; J15.9 Unspecified bacterial pneumonia; N39.0 Urinary tract infection, site not specified; F02.81 Dementia in other diseases classified elsewhere, unspecified severity, with behavioral disturbance; I12.9 Hypertensive chronic kidney disease with stage 1 through stage 4 chronic kidney disease, or unspecified chronic kidney disease; N18.9 Chronic kidney disease, unspecified; Y95 Nosocomial condition; D63.8 Anemia in other chronic diseases classified elsewhere; D69.6 Thrombocytopenia, unspecified; E83.39 Other disorders of phosphorus metabolism; E83.42 Hypomagnesemia; E87.6 Hypokalemia; G20 Parkinson's disease; I13.10 Hypertensive heart and chronic kidney disease without heart failure, with stage 1 through stage 4 chronic kidney disease, or unspecified chronic kidney disease; I45.10 Unspecified right bundle-branch block; Z66 Do not resuscitate; Z22.322 Carrier or suspected carrier of Methicillin resistant Staphylococcus aureus
CPT/HCPCS: 36415; 71045-TC; 80048-TC; 80053-TC; 80076-TC; 81000-TC; 83605-TC; 83735-TC; 84100-TC; 84484-TC; 85025-TC; 85730-TC; 87040-TC; 87081-TC; 92611-TC; G0378; J0456; J0696; J1650; J2543; J3370; J3475; J7030; J7060; P9047